=== PATIENT | female | born 1980 | race African-American/Black ===

== ENCOUNTER 2024-05-09 18:34 | Emergency (ER) | payer MEDICARE, MEDICAID ==
[~2024-05-09] VITALS: Ht 172.7 cm; Wt 90.0 kg
[2024-05-09 18:35] VITALS: BP 131/78; PULSE 76; RESP 18; TEMP 36.4; O2SAT 96
[2024-05-09] MEDS ORDERED: ACETAMINOPHEN 500MG TABLET PO ONE (20:30)
[2024-05-09] MEDS ORDERED: NAPR-1176 MT (22:09)
== END 2024-05-09 22:16 | disposition home or self-care (01) ==
LOC: ER 18:34
DX: S93.409A Sprain of unspecified ligament of unspecified ankle, initial encounter (principal); S82.891A Other fracture of right lower leg, initial encounter for closed fracture; Z79.1 Long term (current) use of non-steroidal anti-inflammatories (NSAID); W18.30XA Fall on same level, unspecified, initial encounter; Y93.01 Activity, walking, marching and hiking; Y92.89 Other specified places as the place of occurrence of the external cause; Y99.8 Other external cause status
CPT/HCPCS: 29515; 73560; 73610; 99284